=== PATIENT | male | born 1970 | race Caucasian/White ===

== ENCOUNTER 2017-06-06 10:36 | Emergency (ER) | payer MEDICAID, OTHER ==
[~2017-06-06] VITALS: Ht 170.2 cm; Wt 84.5 kg
[2017-06-06 10:40] VITALS: Ht 170.2 cm; Wt 84.5 kg
[2017-06-06] MEDS ORDERED: ALBU18HF INHALATION (10:57)
--- NOTE | 2017-06-06 11:05 | ERD ---
ER Documentation Chief Complaint Date/Time DATE: 06/06/17 TIME: 11:03 Chief Complaint cough x 1 week; pt request albuterol inhaler HPI 47-year-old male who is a smoker presents with a history of cough for the past 3 days. He states that he had the same cough about 3 months ago and was treated with albuterol and it went away, and had a normal chest x-ray done at [facility]. He reports that he smokes approximately a pack a day, for over 20 years. He has not had any hemoptysis, fevers or chills. No leg swelling. No trouble swallowing, voice changes, drooling. He denies chest pain or shortness of breath. ROS All systems reviewed and are negative except as per history of present illness. Medications Home Meds Active Scripts Albuterol Sulfate* (Ventolin HFA*) 18 Gm Hfa.aer.ad, 1-2 PUFF INHALATION Q4H, # 1 INHALER Prov:TOSHIA BAILEY PA-C 06/06/17 PMhx/Soc Medical and Surgical Hx: pt denies Medical Hx, pt denies Surgical Hx Hx Alcohol Use: No Hx Substance Use: No Hx Tobacco Use: No Smoking Status: Never smoker Physical Exam Vitals Vital Signs Date Time Temp Pulse Resp B/P Pulse Ox O2 Delivery O2 Flow Rate FiO2 06/06/17 10:40 98.6 79 18 119/79 98 Physical Exam General: Well-developed, well-nourished. The patient appears in no acute distress. HEENT: Head is normocephalic, atraumatic. No scleral icterus. Neck: Supple. Nontender. Lungs: Clear to auscultation. Normal air movement. Heart: Regular rate and rhythm. S1 and S2 are normal. No murmurs, gallops, or rubs. Abdomen: Nondistended. Extremities: No clubbing or cyanosis. Moving extremities x 4. No weakness. Neurologic: Alert and oriented 3. No focal deficits. Normal speech and gait. Skin: Normal turgor. No rash or lesions. Procedures/MDM 47-year-old male comes in with a cough, he has had this for 3 days associated with smoking. He reports that he had a chest x-ray that was normal approximately 3 months ago at an outside hospital. He has not had any constitutional symptoms of hemoptysis with this and his symptoms have only been for 3 days. Patient will be given a Ventolin inhaler to be used, I have advised him that if his symptoms do not improve in a week that he may need further imaging versus chest x-ray, CT chest etc. At this time patient is not hypoxic, does not show any signs of respiratory distress, breath sounds are clear and vitals are normal. Patient is stable for outpatient management. Smoking Cessation Therapy: Pt. was lectured for greater than 3 minutes on the health risks of continued smoking and the benefits of cessation. Departure Diagnosis: Primary Impression: Cough Condition: Good Patient Instructions: Cough, Chronic, Uncertain Cause, (Adult), Smoking Cessation Additional Instructions: Llame al doctor MAANA y kathy jyoti ADELITA PARA DENTRO DE 1-2 TORRES.Dgale a la secretaria que nosotros le instruimos hacer esta adelita.Avise o llame si yen condicin se empeora antes de la adelita. Regresa aqui si peor o no mejor. TOSHIA BAILEY PA-C Jun 06, 2017 11:02
== END 2017-06-06 11:05 | disposition home or self-care (01) ==
LOC: FTE 10:36
DX: R05 Cough (principal)
CPT/HCPCS: 99283